=== PATIENT | male | born 1965 | race Two or more races ===

== ENCOUNTER 2019-05-29 13:55 | Emergency (ER) | payer OTHER ==
--- NOTE | 2019-05-29 14:35 | EDM.PDOC ---
ED HPI GENERAL MEDICAL PROBLEM - General Chief Complaint: Lower Extremity Injury/Pain Stated Complaint: ANKLE INJURY Time Seen by Provider: 05/29/19 14:26 Source of Information: Reports: Patient History Limitations: Reports: No Limitations - History of Present Illness INITIAL COMMENTS - FREE TEXT/NARRATIVE: HISTORY AND PHYSICAL: History of present illness: Patient is a 54-year-old male who presents to the emergency room today with complaints of right ankle pain. He states he tripped and fell resulting in the ankle pain. He is pointing to his medial malleolus as the point of discomfort. He denies hitting his head or having any loss of consciousness. Strong pedal pulse. Patient is although does speak Welsh fluently. Review of systems: As per history of present illness and below otherwise all systems reviewed and negative. Past medical history: As per history of present illness and as reviewed below otherwise noncontributory. Surgical history: As per history of present illness and as reviewed below otherwise noncontributory. Social history: See social history for further information Family history: As per history of present illness and as reviewed below otherwise noncontributory. Physical exam: General: Well-developed and well-nourished 54-year-old male. Alert and oriented. Nontoxic appearing and appears mildly uncomfortable due to injury. HEENT: Atraumatic, normocephalic, pupils equal and reactive bilaterally, negative for conjunctival pallor or scleral icterus, mucous membranes moist, trachea midline. No drooling or trismus noted. No meningeal signs. No hot potato voice noted. Lungs: Clear to auscultation, breath sounds equal bilaterally, chest nontender. Heart: S1S2, regular rate and rhythm without overt murmur Abdomen: Soft, nondistended, nontender. Negative for masses. Pelvis: Stable nontender. Skin: Intact, warm, dry. No lesions or rashes noted. Extremities: Medial malleolus tenderness on the right. Limited range of motion involving the right ankle. Otherwise moves all other extremities per self without difficulty or deficits, negative for cords or calf pain. Neurovascular unremarkable. Neuro: Awake, alert, oriented. Cranial nerves II through XII unremarkable. Cerebellum unremarkable. Motor and sensory unremarkable throughout. Exam nonfocal. Notes: X-ray shows no acute findings. Cam Walker boot and crutches were given while here for comfort purposes. Supportive care measures were reviewed and discussed. Voices understanding and is agreeable to plan of care. Denies any further questions or concerns at this time. Diagnostics: X-ray Therapeutics: Cam Walker boot, crutches Prescription: Diclofenac Impression: Right ankle injury Plan: 1. Rest, ice, elevate the affected extremity. Please wear the CAM walker boot and crutches as directed. 2. Tylenol and/or Ibuprofen as needed for pain management. 3. Follow up with the Orthopedic provider as we discussed. Return to the ED as needed and as discussed. Definitive disposition and diagnosis as appropriate pending reevaluation and review of above. Right Ankle Pain Score (Numeric/FACES): 10 - Related Data Allergies Allergy/AdvReac Type Severity Reaction Status Date / Time No Known Allergies Allergy Verified 05/29/19 14:33 Home Meds: Home Meds glipiZIDE [Glucotrol] 5 mg PO BID 06/18/14 [History] metFORMIN [Glucophage] 500 mg PO BID 06/18/14 [History] Review of Systems - Review of Systems Review Of Systems: ROS reveals no pertinent complaints other than HPI. ED EXAM, GENERAL - Physical Exam Exam: See Below (See dictation) Course - Vital Signs Last Recorded V/S: Last Vital Signs Temp Pulse 102 H 05/29/19 14:34 Resp 18 05/29/19 14:34 BP 130/91 H 05/29/19 14:34 Pulse Ox 90 L 05/29/19 14:34 - Orders/Labs/Meds Orders: Active Orders 24 hr Category Date Time Status DME for Discharge [COMM] Stat Oth 05/29/19 16:01 Ordered Departure - Departure Time of Disposition: 15:59 Disposition: Home, Self-Care 01 Clinical Impression: Right ankle injury Qualifiers: Encounter type: initial encounter Qualified Code(s): S99.911A - Unspecified injury of right ankle, initial encounter - Discharge Information Instructions: Knee Sprain, Adult, [id number] Referrals: PCP,Unknown [Primary Care Provider] - Forms: ED Department Discharge Additional Instructions: The following information is given to patients seen in the emergency department who are being discharged to home. This information is to outline your options for follow-up care. We provide all patients seen in our emergency department with a follow-up referral. The need for follow-up, as well as the timing and circumstances, are variable depending upon the specifics of your emergency department visit. If you don't have a primary care physician on staff, we will provide you with a referral. We always advise you to contact your personal physician following an emergency department visit to inform them of the circumstance of the visit and for follow-up with them and/or the need for any referrals to a consulting specialist. The emergency department will also refer you to a specialist when appropriate. This referral assures that you have the opportunity for follow-up care with a specialist. All of these measure are taken in an effort to provide you with optimal care, which includes your follow-up. Under all circumstances we always encourage you to contact your private physician who remains a resource for coordinating your care. When calling for follow-up care, please make the office aware that this follow-up is from your recent emergency room visit. If for any reason you are refused follow-up, please contact the [facility] Emergency Department at and asked to speak to the emergency department charge nurse. [facility] [address] [place] [address] [place] [address] 1. Rest, ice, elevate the affected extremity. Please wear the CAM walker boot and crutches as directed. 2. Tylenol and/or Ibuprofen as needed for pain management. 3. Follow up with the Orthopedic provider as we discussed. Return to the ED as needed and as discussed. - My Orders Last 24 Hours: My Active Orders 05/29/19 16:01 DME for Discharge [COMM] Stat - Assessment/Plan Last 24 Hours: My Active Orders 05/29/19 16:01 DME for Discharge [COMM] Stat
--- NOTE | 2019-05-29 15:57 | CR ---
Right ankle: Three views of the right ankle were obtained. Comparison: No previous ankle study. Ankle mortise is symmetric. Vascular calcification is seen. Several dystrophic calcifications are seen within the Achilles tendon. Very minimal plantar spur is noted. No acute fracture or other bony abnormality is seen. Impression: Nonacute findings as noted above above. Nothing acute is appreciated. Diagnostic code #2 MTDD
== END 2019-05-29 16:24 | disposition home or self-care (01) ==
LOC: MW.ED 13:55
DX: S99.911A Unspecified injury of right ankle, initial encounter (principal); W01.0XXA Fall on same level from slipping, tripping and stumbling without subsequent striking against object, initial encounter
CPT/HCPCS: 73610-26-RT; 73610-RT; 99283-25

== ENCOUNTER 2019-08-04 09:08 | Emergency (ER) | payer OTHER ==
[2019-08-04] MEDS ORDERED: Diphtheria,Pertussis(Acell),Tetanus Vaccine 0.5 ML Syringe IM ONE (09:34)
[2019-08-04] MEDS ORDERED: Lidocaine 1% PF 2 ML SDV INJECT ONE (09:34)
[2019-08-04] MEDS ORDERED: Lidocaine 1% 2 ML ONE (09:37)
--- NOTE | 2019-08-04 09:42 | EDM.PDOC ---
ED HPI GENERAL MEDICAL PROBLEM - General Chief Complaint: Skin Complaint Stated Complaint: INFECTION ON LEFT LOWER LEG Time Seen by Provider: 08/04/19 09:14 Source of Information: Reports: Patient History Limitations: Reports: No Limitations - History of Present Illness INITIAL COMMENTS - FREE TEXT/NARRATIVE: HISTORY AND PHYSICAL: History of present illness: Patient is a 54-year-old male who presents to the emergency room today with complaints of and "infection" to his left lower extremity. He states approximately a week and a half ago he had bumped his left lower extremity against something and had noticed a small abrasion to the site. He states he did not think anything of it and just recently noticed an area of redness to the area with a centralized area of fluctuation. He states he has been fully ambulatory without difficulty or deficits. Patient states he is a type II diabetic and closely monitors his blood sugars. States he has been running in the 140s to 160s. Patient denies any fever, chills, headache, change in vision, syncope or near syncope. Denies any chest pain, back pain, shortness of breath or cough. Denies any GI and symptoms. Patient has been eating and drinking appropriately. Review of systems: As per history of present illness and below otherwise all systems reviewed and negative. Past medical history: As per history of present illness and as reviewed below otherwise noncontributory. Surgical history: As per history of present illness and as reviewed below otherwise noncontributory. Social history: See social history for further information Family history: As per history of present illness and as reviewed below otherwise noncontributory. Physical exam: General: Well-developed and well-nourished 54-year-old male. Alert and oriented. Nontoxic appearing and in no acute distress. HEENT: Atraumatic, normocephalic, pupils equal and reactive bilaterally, negative for conjunctival pallor or scleral icterus, mucous membranes moist, trachea midline. No drooling or trismus noted. No meningeal signs. No hot potato voice noted. Lungs: Clear to auscultation, breath sounds equal bilaterally, chest nontender. Heart: S1S2, regular rate and rhythm without overt murmur Abdomen: Soft, nondistended, nontender. Skin: Approximately a pulmonary sized area of erythema with a quarter size centralized area of fluctuance in the center with a head. Otherwise skin is intact, warm, dry. No lesions or rashes noted. Extremities: Atraumatic, moves all extremities per self without difficulty or deficits, negative for cords or calf pain. Neurovascular unremarkable. Neuro: Awake, alert, oriented. Cranial nerves II through XII unremarkable. Cerebellum unremarkable. Motor and sensory unremarkable throughout. Exam nonfocal. Notes: Customary procedures were followed for I&D. 1% lidocaine was used to anesthetize the area of fluctuance. Small amount of purulent drainage was expressed from the site. Does appear to have a surrounding cellulitis with this. We discussed the need to have close follow-up with his primary care provider. He states he does have an appointment next week to have his diabetic medications refilled. Signs and symptoms that would require him to return to the emergency room were reviewed. Supportive care measures were reviewed and discussed. Voices understanding and is agreeable to plan of care. Denies any further questions or concerns at this time. Diagnostics: None Therapeutics: I&D, Wound Care Prescription: Bactrim DS Impression: Abscess with cellulitis Plan: 1. Gently wash the area twice daily with soap and water. Continue to monitor the site for improvement. 2. Take the antibiotic as directed. Tylenol and ibuprofen as needed for pain 3. Follow up with your primary care provider as we discussed. Return to the ED as needed as discussed. Definitive disposition and diagnosis as appropriate pending reevaluation and review of above. Left Lower Leg Pain Score (Numeric/FACES): 9 - Related Data Allergies Allergy/AdvReac Type Severity Reaction Status Date / Time No Known Allergies Allergy Verified 08/04/19 09:29 Home Meds: Home Meds glipiZIDE [Glucotrol] 5 mg PO BID 06/18/14 [History] metFORMIN [Glucophage] 500 mg PO BID 06/18/14 [History] Sulfamethoxazole/Trimethoprim [Bactrim Ds Tablet] 1 each PO BID 10 Days #20 tablet 08/04/19 [Rx] Past Medical History - Past Health History Medical/Surgical History: Denies Medical/Surgical History Musculoskeletal History: Reports: Back Pain, Chronic Endocrine/Metabolic History: Reports: Diabetes, Type II Social & Family History - Family History Family Medical History: Noncontributory - Tobacco Use Smoking Status *Q: Never Smoker - Recreational Drug Use Recreational Drug Use: No ED ROS GENERAL - Review of Systems Review Of Systems: ROS reveals no pertinent complaints other than HPI. ED EXAM, SKIN/RASH Exam: See Below (See dictation) Course - Vital Signs Last Recorded V/S: Last Vital Signs Temp 97.5 F 08/04/19 09:27 Pulse 100 08/04/19 09:27 Resp 18 08/04/19 09:27 BP 139/92 H 08/04/19 09:27 Pulse Ox 97 08/04/19 09:27 - Orders/Labs/Meds Orders: Active Orders 24 hr Category Date Time Status Vaccines to be Administered [RC] PER UNIT ROUTINE Care 08/04/19 09:34 Ordered Bacitracin [Bacitracin Oint 1 GM] Med 08/04/19 09:46 Once 1 dose TOP ONETIME ONE Medication Orders Bacitracin (Bacitracin Oint 1 Gm) 1 dose TOP ONETIME ONE Stop: 08/04/19 09:47 Meds: Medications Generic Name Dose Route Start Last Admin Trade Name Freq PRN Reason Stop Dose Admin Bacitracin 1 dose 08/04/19 09:46 Bacitracin Oint 1 Gm TOP 08/04/19 09:47 ONETIME ONE Discontinued Medications Generic Name Dose Route Start Last Admin Trade Name Freq PRN Reason Stop Dose Admin Diphtheria/Tetanus/Acell Pertussis 0.5 ml 08/04/19 09:34 Adacel IM 08/04/19 09:35 .ONCE ONE Lidocaine HCl Confirm 08/04/19 09:37 Xylocaine-Mpf 1% Administered 08/04/19 09:38 Dose 2 mls @ as directed .ROUTE .STK-MED ONE Lidocaine HCl 2 ml 08/04/19 09:34 Xylocaine-Mpf 1% INJECT 08/04/19 09:35 ONETIME ONE Departure - Departure Time of Disposition: 09:45 Disposition: Home, Self-Care 01 Clinical Impression: Abscess Cellulitis Qualifiers: Site of cellulitis: extremity Site of cellulitis of extremity: lower extremity Laterality: left Qualified Code(s): L03.116 - Cellulitis of left lower limb - Discharge Information Prescriptions: Sulfamethoxazole/Trimethoprim [Bactrim Ds Tablet] 1 each PO BID 10 Days #20 tablet Instructions: Cellulitis, Adult, [id number] Referrals: PCP,Not In Area [Primary Care Provider] - Forms: ED Department Discharge Additional Instructions: The following information is given to patients seen in the emergency department who are being discharged to home. This information is to outline your options for follow-up care. We provide all patients seen in our emergency department with a follow-up referral. The need for follow-up, as well as the timing and circumstances, are variable depending upon the specifics of your emergency department visit. If you don't have a primary care physician on staff, we will provide you with a referral. We always advise you to contact your personal physician following an emergency department visit to inform them of the circumstance of the visit and for follow-up with them and/or the need for any referrals to a consulting specialist. The emergency department will also refer you to a specialist when appropriate. This referral assures that you have the opportunity for follow-up care with a specialist. All of these measure are taken in an effort to provide you with optimal care, which includes your follow-up. Under all circumstances we always encourage you to contact your private physician who remains a resource for coordinating your care. When calling for follow-up care, please make the office aware that this follow-up is from your recent emergency room visit. If for any reason you are refused follow-up, please contact the [facility] Emergency Department at and asked to speak to the emergency department charge nurse. [facility] [address] [place] [address] [id number] [address] [address] 1. Gently wash the area twice daily with soap and water. Continue to monitor the site for improvement. 2. Take the antibiotic as directed. Tylenol and ibuprofen as needed for pain 3. Follow up with your primary care provider as we discussed. Return to the ED as needed as discussed. - My Orders Last 24 Hours: My Active Orders 08/04/19 09:34 Vaccines to be Administered [RC] PER UNIT ROUTINE 08/04/19 09:46 Bacitracin [Bacitracin Oint 1 GM] 1 dose TOP ONETIME ONE - Assessment/Plan Last 24 Hours: My Active Orders 08/04/19 09:34 Vaccines to be Administered [RC] PER UNIT ROUTINE 08/04/19 09:46 Bacitracin [Bacitracin Oint 1 GM] 1 dose TOP ONETIME ONE
[2019-08-04] MEDS ORDERED: Bacitracin Oint 1 GM U/D Packet TOP ONE (09:46)
== END 2019-08-04 10:03 | disposition home or self-care (01) ==
LOC: MW.ED 09:08
DX: L02.416 Cutaneous abscess of left lower limb (principal); L03.116 Cellulitis of left lower limb; E11.9 Type 2 diabetes mellitus without complications; Z23 Encounter for immunization; Z79.84 Long term (current) use of oral hypoglycemic drugs
CPT/HCPCS: 10060; 90471; 90715; 99282; J2001